=== PATIENT | male | born 1965 | race Caucasian/White ===

== ENCOUNTER 2024-02-16 11:39 | Observation (INO) ==
--- NOTE | 2024-02-16 12:04 | Emergency Department Note ---
Impression & Plan Chest pain ADMIT ED Provider Note HPI: History obtained from patient. The patient is a 58-year-old gentleman who presents to the emergency department after a failed stress test in the outpatient setting this morning through [facility]. I did receive a phone call about the patient prior to his arrival from Dr. Dorado of cardiology. He stated that the patient had a stress test today and developed some symptoms during the test and he was concerned about the potential for ischemia. Patient came by private vehicle and remained chest pain-free following his stress test at rest. On my assessment of the patient here in the ED he is hemodynamically stable, he denies any active pain. Patient is saturating well on room air on arrival. ROS: - Per HPI Differential Diagnosis: Acute coronary syndrome/myocardial ischemia, pulmonary embolism, aortic dissection, pneumothorax, esophagitis, amongst other potential pathologies. *Outpatient medications and allergy history reviewed. PE: General: Alert HEENT: Normocephalic, trachea midline Eyes: Extraocular eye movement is intact, no scleral erythema Pulmonary: Clear to auscultation bilaterally, no wheezing Cardio: Regular rate and rhythm GI: Abdomen is soft to palpation : No suprapubic tenderness MSK: No evidence of trauma or malformation of the extremities, no edema Skin: No evidence of rash Neuro: Alert, no focal deficits Psychiatric: Cooperative INDEPENDENT INTERPRETATIONS: air sampling and monitoring: (As interpreted by myself): - An order was placed for continuous cardiac monitoring - Patient was noted to be in sinus rhythm with a rate of 57 EKG: (As interpreted by myself): Rate: 77 Rhythm: Normal sinus rhythm Intervals: Within normal limits ST changes: No ST elevation Time: 1154 Chest x-ray: (As interpreted by myself): No acute abnormality Interventions provided in ED: -IV fluid bolus Medical Decision Making: IV was established and lab work obtained, patient was placed on site monitor. CBC does not show any critical abnormalities, CMP does not show any critical findings, troponin is negative x 1. EKG per my interpretation does not show any acute ischemic changes. Chest x-ray does not show any evidence of acute disease. I discussed the patient's presentation with the on-call [facility] district court bailiff, Dr. Mahajan, who did evaluate the patient at the bedside. Case was then discussed with the on-call [facility] hospitalist service, Anitha Clement PA- C, and the patient was placed for admission in stable condition for further care. Consultants/Discussions held with other healthcare providers: -Cardiology, Dr. Mahajan -Hospitalist, Dr. Oswald Disposition discussion held by myself with: -Patient and at bedside Diagnosis: 1. Abnormal outpatient stress test, acute 2. Chest pain, acute, transient Disposition: ADMIT Larry Nieves DO Emergency Medicine Past Med/Surg History Social History Smoking Status: Never smoker Feels Safe at Home: Yes Allergies Allergies Allergy/AdvReac Type Severity Reaction Status Date / Time No Known Allergies Allergy Unverified 02/16/24 13:09 Home Meds Home Medications Medication Instructions Recorded Confirmed cholecalciferol (vitamin D3) 25 25 mcg PO DAILY 02/16/24 02/16/24 mcg (1,000 unit) capsule (Vitamin D3) multivitamin 1 tab PO DAILY 02/16/24 02/16/24 Results & Data (ED) Vital Signs Vital Signs - 24 hr 02/16/24 11:40 02/16/24 11:42 02/16/24 11:44 Temperature 36.7 C Temperature Source Skin Pulse Rate 72 85 Pulse Rate from SpO2 Sensor Pulse Rhythm Regular Respiratory Rate 18 18 Blood Pressure 161/93 H Blood Pressure Mean 115 Pulse Oximetry 96 96 98 Oxygen Delivery Method Room Air Room Air Room Air Sepsis Recent Fever Within 48 Hours No Sepsis New/Unexplained Change in Mental Status No Sepsis Action Taken by Nursing No Action Required 02/16/24 12:12 02/16/24 12:22 02/16/24 12:30 Temperature Temperature Source Pulse Rate 78 72 72 Pulse Rate from SpO2 Sensor 77 73 Pulse Rhythm Respiratory Rate 23 17 Blood Pressure Blood Pressure Mean Pulse Oximetry 97 98 Oxygen Delivery Method Sepsis Recent Fever Within 48 Hours Sepsis New/Unexplained Change in Mental Status Sepsis Action Taken by Nursing 02/16/24 12:30 02/16/24 13:00 02/16/24 13:00 Temperature Temperature Source Pulse Rate 73 Pulse Rate from SpO2 Sensor Pulse Rhythm Respiratory Rate 15 Blood Pressure 148/81 H 124/81 Blood Pressure Mean 104 93 Pulse Oximetry Oxygen Delivery Method Sepsis Recent Fever Within 48 Hours Sepsis New/Unexplained Change in Mental Status Sepsis Action Taken by Nursing 02/16/24 13:30 02/16/24 14:00 Temperature Temperature Source Pulse Rate 76 60 Pulse Rate from SpO2 Sensor 76 61 Pulse Rhythm Respiratory Rate 14 15 Blood Pressure 143/95 H 114/74 Blood Pressure Mean 107 88 Pulse Oximetry 99 98 Oxygen Delivery Method Sepsis Recent Fever Within 48 Hours Sepsis New/Unexplained Change in Mental Status Sepsis Action Taken by Nursing Laboratory Data 02/16/24 Unknown 02/16/24 Unknown Lab Results 02/16/24 Range/Units Unknown WBC 6.25 (4.8-10.8) K/ul RBC 5.12 (4.70-6.10) M/uL Hgb 15.2 (14.0-18.0) g/dl Hct 44.0 (42.0-52.0) % MCV 85.9 (80.0-100.0) fL MCH 29.7 (25.0-34.0) pg MCHC 34.5 (32.0-36.0) g/dL RDW Std Deviation 39.8 (36.4-46.3) fL RDW Coeff of Damian 12.7 (11.5-14.5) % Plt Count 166 (130-400) K/uL MPV 10.8 (9.4-12.4) fL Immature Gran % (Auto) 0.2 % Neut % (Auto) 78.2 % Lymph % (Auto) 16.2 % [place] % (Auto) 4.6 % Eos % (Auto) 0.5 % Baso % (Auto) 0.3 % Neut # (Auto) 4.89 (1.40-6.50) K/uL Lymph # (Auto) 1.01 L (1.20-3.40) K/uL [place] # (Auto) 0.29 (0.11-0.59) K/uL Eos # (Auto) 0.03 (0.00-0.50) K/uL Baso # (Auto) 0.02 (0.00-0.20) K/uL Immature Gran # (Auto) 0.01 (0.01-0.20) K/uL PT 11.1 (9.0-12.0) Seconds INR 1.0 (0.9-1.1) Sodium 139 (136-145) mmol/L Potassium 4.4 (3.5-5.1) mmol/L Chloride 107 (98-107) mmol/L Carbon Dioxide 25 (21-32) mmol/L Anion Gap 7 (3-11) BUN 20 (6-23) mg/dl Creatinine 0.97 (0.6-1.4) mg/dl Est Cr Clr Drug Dosing 101.6 ml/min Est GFR ( Amer) 100.7 ml/min Est GFR (Non-Af Amer) 86.9 ml/min BUN/Creatinine Ratio 20.6 H (10-20) Glucose 114 H (70-99(Fasting)) mg/dl Calcium 9.7 (8.6-10.3) mg/dl Total Bilirubin 0.5 (0.2-1.0) mg/dl AST 18 (13-39) U/L ALT 13 (7-52) U/L Alkaline Phosphatase 80 (34-104) U/L Troponin I High Sens 4.8 (0-20) pg/ml Total Protein 7.6 (6.0-8.3) gm/dl Albumin 4.6 (3.4-5.0) gm/dl Globulin 3.0 (2.5-4.0) gm/dl Albumin/Globulin Ratio 1.5 (0.9-2) Lipase 23 (11-82) U/L Administered Medications Discontinued Medications Aspirin (Aspirin 81 Mg Chew) 324 mg PO NOW STA Stop: 02/16/24 14:34 Last Admin: 02/16/24 14:49 Dose: 324 mg Documented By: SUSAN Imaging Data Radiologist's Impression: Chest X-Ray 02/16/24 11:42 SINGLE VIEW CHEST CLINICAL HISTORY: Atypical chest pain. FINDINGS: An AP, portable, upright chest radiograph is obtained. No prior studies are available for comparison at the time of dictation. The cardiomediastinal silhouette is top normal for projection. The lungs and pleural spaces are clear. No pneumothorax is seen. The bony thorax is grossly intact. IMPRESSION: No acute cardiopulmonary abnormality is identified. ACT 112: Negative or not required by law. Electronically signed by: Jose Armendariz M.D. 02/16/2024 12:22 PM Discharge Plan Visit Data Chief Complaint: Cardiac Assessment Stated Complaint: heart catheter ED Provider: Larry Nieves Discharge Problem: Chest pain Forms Stand Alone Forms: [facility] [employer] Prescriptions Prescriptions: No Action multivitamin Tablet 1 tab PO DAILY cholecalciferol (vitamin D3) [Vitamin D3] 25 mcg (1,000 unit) Capsule 25 mcg PO DAILY Referrals Referrals: PCP,NO [Physician] - Discharge Problem: Chest pain Qualifiers: Chest pain type: unspecified Qualified Code(s): R07.9 - Chest pain, unspecified
--- NOTE | 2024-02-16 12:24 | XRay Report ---
SINGLE VIEW CHEST CLINICAL HISTORY: Atypical chest pain. FINDINGS: An AP, portable, upright chest radiograph is obtained. No prior studies are available for c omparison at the time of dictation. The cardiomediastinal silhouette is top normal for projection. Th e lungs and pleural spaces are clear. No pneumothorax is seen. The bony thorax is grossly intact. IMPRESSION: No acute cardiopulmonary abnormality is identified. ACT 112: Negative or not required by law. Electronically signed by: Jose Armendariz M.D. 02/16/2024 12:22 PM
[2024-02-16 12:57] LABS: Albumin Globulin Ratio 1.5 (0.9-2); Albumin Level 4.6 gm/dl (3.4-5.0); BUN Creatinine Ratio 20.6 (10-20); Bilirubin,Total 0.5 mg/dl (0.2-1.0); Calcium 9.7 mg/dl (8.6-10.3); Creatinine Clr Calc Pharmacy 101.6 ml/min; Est GFR (African American) 100.7 ml/min; Est GFR (Non-African American) 86.9 ml/min; Potassium 4.4 mmol/L (3.5-5.1); Total Protein 7.6 gm/dl (6.0-8.3)
[2024-02-16 12:59] LABS: Basophils # (auto) 0.02 K/uL (0.00-0.20); Basophils % (auto) 0.3 %; Eosinophils # (auto) 0.03 K/uL (0.00-0.50); Eosinophils % (auto) 0.5 %; Hemoglobin 15.2 g/dl (14.0-18.0); Immature Granulocytes # (auto) 0.01 K/uL (0.01-0.20); Immature Granulocytes % (auto) 0.2 %; Lymphocytes # (auto) 1.01 K/uL (1.20-3.40); Lymphocytes % (auto) 16.2 %; Mean Corpuscular Hemoglobin 29.7 pg (25.0-34.0); Mean Corpuscular Hgb Conc 34.5 g/dL (32.0-36.0); Mean Corpuscular Volume 85.9 fL (80.0-100.0); Mean Platelet Volume 10.8 fL (9.4-12.4); Monocytes # (auto) 0.29 K/uL (0.11-0.59); Monocytes % (auto) 4.6 %; Neutrophils # (auto) 4.89 K/uL (1.40-6.50); Neutrophils % (auto) 78.2 %; Platelet Count 166 K/uL (130-400); RDW Coefficient of Variation 12.7 % (11.5-14.5); RDW Standard Deviation 39.8 fL (36.4-46.3); Red Blood Count 5.12 M/uL (4.70-6.10); White Blood Count 6.25 K/ul (4.8-10.8)
[2024-02-16 13:03] LABS: Troponin I High Sensitivity 4.8 pg/ml (0-20)
--- NOTE | 2024-02-16 13:14 | Cardiology Consultation ---
Date of Consultation February 16, 2024 Assessment & Plan (1) Chest pain: (2) Abnormal stress echocardiogram: (3) Hyperlipidemia: Plan Impression: 1. Exertional angina 2. Abnormal stress echocardiogram 3. HLD Plan: -EKG without acute changes -Troponin normal -Patient remains chest pain free -Exercise stress echocardiogram markedly abnormal with significant ST depression and hypokinesis concerning for pLAD stenosis. -Patient to receive 324mg ASA -Plan for cardiac catheterization today. Patient to remain NPO for procedure. Case discussed with Dr. Mahajan. Further recommendations pending assessment. I spent a total of 40 minutes on the date of service in preparation, delivery, and documentation of the care provided to the patient excluding any time spent in the performance of separately billed services. Katlyn Ackerman PA-C Department of Cardiology, [facility] This chart was completed in part utilizing Speech Voice Recognition Software. Grammatical errors, random word insertions, pronoun errors, and incomplete sentences are an occasional consequence of this system due to software limitations, ambient noise, and hardware issues. Any formal questions or concerns about the content, text, or information contained within the body of this dictation should be directly addressed to the provider for clarification. Supervising Physician Co-Signing Physician Notes Patient was seen and personally examined, chart, medications, telemetry reviewed. Full assessment and plan as outlined by advanced provider above. Care and management discussed and personally endorsed 58-year-old male with cardiovascular risk factors of hyperlipidemia presented with symptoms concerning for exertional angina over the 1 month period. Patient referred for stress echocardiography as above with significant stress- induced abnormalities EKG and echocardiographic consistent with proximal left anterior descending disease Discussed management in detail with patient would recommend proceeding to diagnostic cardiac catheterization with procedure and risks explained in detail to the patient. Informed consent obtained. All questions answered History of Present Illness Reason for Consultation: Abnormal stress test Requesting Physician: Dacia kelley History of Present Illness Gurjit Barron is a pleasant 58 year old male with PMHx HLD that presented to [facility] ED per recommendation of cardiology for abnormal stress test today. Patient initially saw his PCP for routine visit on 02/15/2024. He had a complaint of exertional chest discomfort associated with lightheadedness and nausea x1 month. Chest discomfort located substernally and described as mild pressure. Nonradiating. Symptoms improve with rest. No vomiting/diaphoresis. He first noticed symptoms while weight training 5 weeks ago. EKG was completed and stress test was scheduled for today. He is very active in his daily life, completing weight training and core exercises 6x per week. He does not take any daily m edications. Patient is currently chest pain free and has no complaints. Denies palpitations, syncope. Patient denies history of rheumatic fever as a child, history of diabetes, CAD, CHF. Social Hx: never smoker, 1-2 alcohol beverages every couple of weeks, denies drug use Family Hx: Father - CAD s/p angioplasty PMHx: HLD Refer to Dr. Dorado's interpretation of exercise stress echocardiogram below: "Patient developed shortness of breath proximally 3 minutes into exercise with associated ST depression in the inferior and lateral leads. He developed chest pressure at approximately 6 minutes which resolved promptly during recovery. He did however develop more than 3 mm of horizontal to downsloping ST depression in the inferior lateral leads. " Per report stress imaging demonstrating hypokinesis of mid and anterior apical wall, apex, apical inferior and lateral man, mid and apical septum. Suggestive of possible pLAD stenosis. EF 60-64% Primary outpatient fruit or nut farmer: Dr. Dorado Allergies Allergy/AdvReac Type Severity Reaction Status Date / Time No Known Allergies Allergy Unverified 02/16/24 13:09 Home Medications Medication Instructions Recorded Confirmed Type cholecalciferol (vitamin D3) 25 25 mcg PO DAILY 02/16/24 02/16/24 History mcg (1,000 unit) capsule (Vitamin D3) multivitamin 1 tab PO DAILY 02/16/24 02/16/24 History Patient History Social History Smoking Status: Never smoker Hx Substance Use: No Feels Safe at Home: Yes Review of Systems Review of Systems: All systems reviewed & are unremarkable except as noted in HPI & below Physical Exam Constitutional: WD/WN, vitals as above Eyes: PERRL, conjunctivae normal, anicteric sclerae Neck: trachea midline, no thyromegaly Respiratory: normal respiratory effort, lungs clear to auscultation Cardiovascular: RRR, no murmur, no edema Heart Sounds: normal S1 and normal S2 Vessels: normal peripheral pulses; no carotid bruit Extremities: no edema Chest (Breasts): normal inspection/palpation of breasts Gastrointestinal (Abdomen): normal bowel sounds, soft, nontender, no hepatosplenomegaly Musculoskeletal: no cyanosis or clubbing, extremities motor strength 5/5 Skin: no rashes, warm and dry Neurologic: PERRL, EOMI, accommodation nl, no face palsy, no dysarthria Psychiatric: A+Ox3, euthymic affect Results & Data Vital Signs (Past 12 Hours) Vital Signs Temp Pulse Resp BP Pulse Ox O2 Del Method 02/16/24 12:22 72 02/16/24 11:44 36.7 C 85 18 161/93 H 98 Room Air Laboratory Results Cardiac Enzymes 02/16/24 Range/Units Unknown AST 18 (13-39) U/L Troponin I High Sens 4.8 (0-20) pg/ml Coagulation 02/16/24 Range/Units Unknown PT 11.1 (9.0-12.0) Seconds CBC 02/16/24 Range/Units Unknown WBC 6.25 (4.8-10.8) K/ul RBC 5.12 (4.70-6.10) M/uL Hgb 15.2 (14.0-18.0) g/dl Hct 44.0 (42.0-52.0) % Plt Count 166 (130-400) K/uL Neut # (Auto) 4.89 (1.40-6.50) K/uL Lymph # (Auto) 1.01 L (1.20-3.40) K/uL [place] # (Auto) 0.29 (0.11-0.59) K/uL Eos # (Auto) 0.03 (0.00-0.50) K/uL Baso # (Auto) 0.02 (0.00-0.20) K/uL Comprehensive Metabolic Panel 02/16/24 Range/Units Unknown Sodium 139 (136-145) mmol/L Potassium 4.4 (3.5-5.1) mmol/L Chloride 107 (98-107) mmol/L Carbon Dioxide 25 (21-32) mmol/L BUN 20 (6-23) mg/dl Creatinine 0.97 (0.6-1.4) mg/dl Glucose 114 H (70-99(Fasting)) mg/dl Calcium 9.7 (8.6-10.3) mg/dl AST 18 (13-39) U/L ALT 13 (7-52) U/L Alkaline Phosphatase 80 (34-104) U/L Total Protein 7.6 (6.0-8.3) gm/dl Albumin 4.6 (3.4-5.0) gm/dl Intake and Output 02/15/24 02/16/24 02/16/24 22:59 06:59 14:59 Other: Weight 95.1 kg Patient Weight 02/17/24 06:59 Weight 95.1 kg
[2024-02-16 13:16] LABS: Prothrombin Time 11.1 Seconds (9.0-12.0)
--- NOTE | 2024-02-16 14:00 | History & Physical Report ---
Date of Service February 16, 2024 Assessment & Plan (1) Abnormal stress echocardiogram: Plan: Patient is 58 year old [facility] dyslipidemia, FH CAD presented to ER with c/o abnormal stress test today and referred to ER by cardiology In ER vitals stable. Troponin negative. EKG sinus rhythm without acute ST elevation No current CP or SOB Give 324mg aspirin now Cardiology consult, Dr Mahajan plans to take patient to director geophysical laboratory this afternoon Start aspirin Follow up after cardiac cath and will add statin and likely beta jake, and possible dual antiplatelet therapy pending cardiac cath findings and procedure CBC, BMP in am Outpatient 02/15/2024 lipid panel: Total cholesterol: 272, LDL: 192, HDL: 49, triglycerides: 153. A1c: 5.4 on 02/15/2020 (2) Hyperlipidemia: Plan: Plan to add statin DVT Prophylaxis SCDs Full Code as per discussion with pt Follows with Dr Ramiro Lemons for routine care Pt was seen and care coordinated with Dr Oswald. See addendum I spent a total of 75 minutes reviewing notes, outpatient records, labs, medication, coordinating, documenting and providing care for this patient excluding time spent in the performance of separately billed services. History of Present Illness Chief Complaint: abnormal stress test Primary Care Provider: Ramiro Lemons DO Patient is 58 year old [facility] dyslipidemia presented to ER with c/o abnormal stress test today. Patient was seen PCP office yesterday for routine follow up and had mentioned chest pressure sensation with strenuous exercise that resolves in approximately 30 seconds with rest. He was scheduled for outpatient exercise stress test which he had today and had noted SOB and ST depression in inferior an lateral leads per report and was sent to ER for further evaluation and planned cardiac catheterization. Nothing to eat so far today. Had 0.5 cup black coffee today. Currently patient denies any CP, SOB, dizziness, palpitations. He reports he is a bit anxious with the events of the day. Denies fever/chills, diaphoresis, N/V/D/C, BATEMAN, dizziness, syncope, vision changes, neck pain, orthopnea, palpitations, cough, sore throat, rhinorrhea, abdominal pain, paresthesias, weakness, extremity weakness, extremity edema, rashes, urinary symptoms. Allergies Allergy/AdvReac Type Severity Reaction Status Date / Time No Known Allergies Allergy Unverified 02/16/24 13:09 Home Medications Medication Instructions Recorded Confirmed Type aspirin 81 mg tablet,delayed 81 mg PO QAM #30 tabs 02/16/24 Rx release cholecalciferol (vitamin D3) 25 25 mcg PO DAILY 02/16/24 02/16/24 History mcg (1,000 unit) capsule (Vitamin D3) metoprolol succinate 25 mg 12.5 mg (1/2 x 25 mg) PO BID #30 02/16/24 Rx tablet,extended release 24 hr tabs multivitamin 1 tab PO DAILY 02/16/24 02/16/24 History rosuvastatin 20 mg tablet 20 mg PO DAILY #30 tabs 02/16/24 Rx Past Med/Surg History Medical History Hyperlipidemia Family History Father Coronary heart disease Father stent age 50's Diabetes Brother Dyslipidemia Sister Dyslipidemia Social History Smoking Status: Never smoker Hx Alcohol Use: Yes (1-2 beers every 2 weeks) Hx Substance Use: No Feels Safe at Home: Yes Review of Systems Review of Systems: All systems reviewed & are unremarkable except as noted in HPI & below Physical Exam Physical Exam: General: no acute distress, WDWN Head: normocephalic, atraumatic Eyes: conjunctiva non-injected, anicteric ENT: normal inspection external ears, nose, mucous membranes moist Neck: supple, trachea midline Lungs: clear, no respiratory distress, no wheezing/rhonchi/rales CV: RRR, no murmur, no pretibial edema Abd: normal BS, soft, non-tender Ext: no cyanosis, no calf tenderness Neuro: A&O x 3, no focal deficits noted, slightly anxious affect Skin: warm, dry Results & Data Results & Data Vital Signs (Past 12 Hours) Vital Signs Temp Pulse Resp BP Pulse Ox O2 Del Method 02/16/24 13:00 73 15 02/16/24 13:00 124/81 02/16/24 12:30 148/81 H 02/16/24 12:30 72 17 98 02/16/24 12:22 72 02/16/24 12:12 78 23 97 02/16/24 11:44 36.7 C 85 18 161/93 H 98 Room Air 02/16/24 11:42 72 18 96 Room Air 02/16/24 11:40 96 Room Air Laboratory Results Short CBC 02/16/24 Range/Units Unknown WBC 6.25 (4.8-10.8) K/ul Hgb 15.2 (14.0-18.0) g/dl Hct 44.0 (42.0-52.0) % Plt Count 166 (130-400) K/uL BMP 02/16/24 Unknown Sodium 139 Potassium 4.4 Chloride 107 Carbon Dioxide 25 BUN 20 Creatinine 0.97 Glucose 114 H Calcium 9.7 Liver Function 02/16/24 Range/Units Unknown Total Bilirubin 0.5 (0.2-1.0) mg/dl AST 18 (13-39) U/L ALT 13 (7-52) U/L Alkaline Phosphatase 80 (34-104) U/L Albumin 4.6 (3.4-5.0) gm/dl Diagnostic Findings Chest X-Ray 02/16/24 11:42 SINGLE VIEW CHEST CLINICAL HISTORY: Atypical chest pain. FINDINGS: An AP, portable, upright chest radiograph is obtained. No prior studies are available for comparison at the time of dictation. The cardiomediastinal silhouette is top normal for projection. The lungs and pleural spaces are clear. No pneumothorax is seen. The bony thorax is grossly intact. IMPRESSION: No acute cardiopulmonary abnormality is identified. ACT 112: Negative or not required by law. Electronically signed by: Jose Armendariz M.D. 02/16/2024 12:22 PM ECG Additional Comments: sinus rhythm, rate 77 Supervising Physician Co-Signing Physician Notes I have seen and discussed the case with the collaborating advanced practitioner. I agree with the above H&P. I have reviewed and confirmed the patients medical history, the findings on physical examination, and the patients diagnosis and treatment plan with [facility] PRICE and agree with the information documented. In short, Mr Barron is a 58 year old gentleman with no notable medical history admitted for abnormal stress test. LHC reveal severe CAD with chronic occlusion. Given collaterals, patient to be medically managed with ASA, statin, BB. There is reluctance for statin therapy with spouse. Encouraged and recommended the aforementioned regimen. GENERAL APPEARANCE: AxOx4, generally well-appearing male, no acute distress. HEENT: NC, AT. MMM. EOMI, clear conjunctiva, oropharynx clear. NECK: Supple without lymphadenopathy. No stiffness or restricted ROM. HEART: Normal rate and regular rhythm, normal S1/S1, no m/r/g LUNGS: CTAB, moving air well. No crackles or wheezes are heard. ABDOMEN: Soft, nontender, nondistended with good bowel sounds heard. EXTREMITIES: Without cyanosis, clubbing or edema. NEUROLOGICAL: Grossly nonfocal. Alert and oriented, moving all 4 extremities. CN not formally tested but appear grossly intact. Observed to ambulate with normal gait. Skin: Warm and dry without any rash. #Severe CAD with chronic occlusion #Abnormal stress test -Encouraged ASA, statin, BB therapy follow up with Cards. Plan as above I spent a total of 45 minutes coordinating, documenting, and providing care for this patient excluding time spent in the performance of separately billed ser vices. All of the aforementioned completed outside of collaborating with the assigned advanced practitioner for a full treatment plan. I have reviewed the advanced practitioner's documentation, and I agree with, and take responsibility for the plan of care
[2024-02-16] MEDS: ASPIRIN 81 MG CHEW PO STA (14:49)
--- NOTE | 2024-02-16 15:17 | Pre Anesthesia Assessment ---
Date of Service February 16, 2024 Pre Sedation Assessment Vital Signs Temp Pulse Resp BP Pulse Ox O2 Del Method 02/16/24 15:00 132/84 02/16/24 14:59 69 14 02/16/24 14:30 119/73 02/16/24 14:30 65 16 100 02/16/24 14:00 60 15 114/74 98 02/16/24 13:30 76 14 143/95 H 99 02/16/24 13:00 73 15 02/16/24 13:00 124/81 02/16/24 12:30 148/81 H 02/16/24 12:30 72 17 98 02/16/24 12:22 72 02/16/24 12:12 78 23 97 02/16/24 11:44 36.7 C 85 18 161/93 H 98 Room Air 02/16/24 11:42 72 18 96 Room Air 02/16/24 11:40 96 Room Air Cardiovascular + regular rate and + regular rhythm + S1 normal and + S2 normal; no murmur no JVD no edema Respiratory normal respiratory effort, lungs clear to auscultation Pre-Sedation Airway Assessment Smoking Status: Never smoker Mallampati Class: II ASA: ASA2 NPO Status Date of Last Intake of Fluids: 02/16/24 Last Oral Intake of Fluids Comment: Sips only this morning Date of Last Intake of Solid Food: 02/15/24 Procedure Planning Contraindications for Sedation: none Current Medications Reviewed: Yes Notes The planned sedation has been discussed with the patient. Informed Consent was obtained. I have identified the patient, determined the appropriateness of sedation and have assessed the patient immediately prior to the procedure. All medicine(s) and interventions are by my order.
[2024-02-16] MEDS: niCARdipine HCL INJ 2.5 MG/ML 10 ML AMP ONE (16:10)
[2024-02-16] MEDS: NITROGLYCERIN/D5W 100MCG/ML 20ML SYR ONE (16:10)
[2024-02-16] MEDS: HEPARIN (PORCINE) 1000 UNIT/ML 10 ML (CATH LAB USE ONLY) ONE (16:13)
[2024-02-16] MEDS: MIDAZOLAM HCL 1 MG/ML 2ML VIAL ONE (16:13)
[2024-02-16] MEDS: OPTIRAY 350 ONE (16:14)
[2024-02-16] MEDS: fentaNYL citrate PF 100 MCG/2 ML VIAL ONE (16:14)
--- NOTE | 2024-02-16 16:28 | Cardiac Catheterization ---
Cardiac Cath Procedure Brief Procedure Date February 16, 2024 Pre-Procedure Diagnosis Pre-Procedure Diagnosis: Angina and Positive Stress Test AUC Score AUC Score: 7 Post-Procedure Diagnosis Post-Procedure Diagnosis: Severe CAD (Single-vessel with chronic total occlusion left anterior descending/diagonal) and Normal LV Systolic Function Procedure(s) Performed Procedure(s) Performed: Coronary Angiography, Left Heart Cath and LV Angiography Offset Press Operator Apprentice Riky Mahajan MD Biostatistics Professor(s) Slime Stallworth Estimated Blood Loss Estimated Blood Loss: <15cc Medication(s) Medication(s): Fentanyl (12.5 mcg IV), Heparin (5000 units IV), Lidocaine 1% (Local infiltration access site), Nicardipine (250 mcg intra-arterial after arterial sheath insertion) and Versed (1 mg IV) Preliminary Findings Impression: Severe single-vessel coronary disease with chronic total occlusion of the proximal left anterior descending with left to left and right to left collaterals fill Normal to hyperdynamic left-ventricular systolic function Procedure: Left heart catheterization, coronary, LV angiography via right radial access, uncomplicated Catheters: 6 Wolof long glide sheath, 5 Wolof [place], 5 Wolof straight pigtail Coronary angiography: Codominant system anatomy Left main: Normal length and caliber free of disease Left anterior descending: Type III in distribution with severe disease in proximal portion with chronic total occlusion after 2 small diagonal branches. The vessel seen filling via left to left and right to left collateral fill Left circumflex: Large caliber codominant anatomy with the right coronary supplying only a small portion of the posterior descending artery distribution. The vessel gives rise to a tiny high marginal 2 large obtuse marginal branches, 2 large left posterolateral branches and a posterior descending artery. There are mild luminal irregularities in the left circumflex distribution Right coronary artery: Small and codominant. It gives rise to a right ventricular branch and a small portion of the posterior sending artery distribution. It does supply collateral fill to the mid and distal left anterior descending through septal perforators LV angiography: Hyperdynamic LV function, EF greater than 70% Recommendations Recommendations: Medical Therapy and/or Counseling Specimens Specimens: None Fluids (cc crystalloids) Fluids (cc crystalloids): 67 Anesthesia Start time: 1552 stop time: 1615 Procedural Complication(s) None Disposition Machinery Mover Holding/Recovery Supervising Physician Co-Signing Physician Notes Patient was seen and personally examined, chart, medications, telemetry reviewed. Full assessment and plan as outlined by advanced provider above. Care and management discussed and personally endorsed 58-year-old male with cardiovascular risk factors of hyperlipidemia presented with symptoms concerning for exertional angina over the 1 month period. Patient referred for stress echocardiography as above with significant stress-in duced abnormalities EKG and echocardiographic consistent with proximal left anterior descending disease Discussed management in detail with patient would recommend proceeding to diagnostic cardiac catheterization with procedure and risks explained in detail to the patient. Informed consent obtained. All questions answered
[2024-02-16] MEDS ORDERED: ONDANSETRON INJ 2 MG/ML 2 ML VIAL IV PRN (17:34)
[2024-02-16] MEDS ORDERED: ACETAMINOPHEN 325 MG TAB PO PRN (17:34)
[2024-02-16] MEDS ORDERED: POLYETHYLENE (MIRALAX) 17 GM PACK PO PRN (17:34)
--- NOTE | 2024-02-16 17:40 | Cardiac Catheterization ---
Cardiac Cath Procedure Full Procedure Date February 16, 2024 Pre-Procedure Diagnosis Pre-Procedure Diagnosis: Angina and Positive Stress Test AUC Score AUC Score: 8 Post-Procedure Diagnosis Post-Procedure Diagnosis: Severe CAD (Single-vessel with chronic total occlusion left anterior descending/diagonal) and Normal LV Systolic Function Procedure(s) Performed Procedure(s) Performed: Coronary Angiography, Left Heart Cath and LV Angiography Emulsification Operator Riky Mahajan MD Electric Motor Tester(s) Slime Stallworth Estimated Blood Loss Estimated Blood Loss: <15cc Medication(s) Medication(s): Fentanyl (12.5 mcg IV), Heparin (5000 units IV), Lidocaine 1% (Local infiltration access site), Nicardipine (250 mcg intra-arterial after arterial sheath insertion) and Versed (1 mg IV) Summary of Findings Impression: Severe single-vessel coronary disease with chronic total occlusion of the proximal left anterior descending with left to left and right to left collaterals fill Normal to hyperdynamic left-ventricular systolic function Procedure: Left heart catheterization, coronary, LV angiography via right radial access, uncomplicated Catheters: 6 Macanese long glide sheath, 5 Macanese [place], 5 Macanese straight pigtail Coronary angiography: Codominant system anatomy Left main: Very short, normal caliber free of disease Left anterior descending: Type III in distribution with severe disease in proximal portion with chronic total occlusion after 2 small diagonal branches. The vessel seen filling via left to left and right to left collateral fill Left circumflex: Large caliber codominant anatomy with the right coronary supplying only a small portion of the posterior descending artery distribution. The vessel gives rise to a tiny high marginal 2 large obtuse marginal branches, 2 large left posterolateral branches and a posterior descending artery. There are mild luminal irregularities in the left circumflex distribution Right coronary artery: Small and codominant. It gives rise to a right ventricular branch and a small portion of the posterior sending artery distribution. It does supply collateral fill to the mid and distal left anterior descending through septal perforators LV angiography: Hyperdynamic LV function, EF greater than 70% Hemodynamics Rest Ao:: 126/83/1 Final Ao: 106/76/9 LV: 123/0/15 Recommendations Recommendations: Medical Therapy and/or Counseling Specimens Specimens: None Radiation Exposure (mGy) 866 Contrast (mls) 83 Fluids (cc crystalloids) Fluids (cc crystalloids): 67 Anesthesia Start time: 1552 stop time: 1615 Procedural Complication(s) None Disposition Interface Analyst Holding/Recovery I attest to the content of the Intraoperative Record and any orders documented therein. Any exceptions are noted below. ACC Data: Interface Analyst Cardiac Status Clinical evaluation leading to the procedure 58-year-old active male referred for stress testing after presenting with 1 or 2 months greater history of exertional anginal symptoms Stress testing with significant LAD distribution ischemia by EKG and echocardiographic criteria CAD Presenation: Stable angina Anginal Classification: CCS III Heart Failure: No Cardiogenic Shock within 24 Hours: No Cardiac Arrest within 24 Hours: No Imaging Studies Past 6 Months: Yes Stress Studies Past 6 Months: Yes Standard Exercise Test: No Stress Echocardiogram: Yes - Positive Stress Testing w/SPECT MPI: No Cardiac CTA: No Coronary Anatomy Dominant: Co-Dominant Left Main (% Stenosis): Normal (Short vessel) LAD (% Stenosis): Proximal (100% chronic total occlusion) Circumflex (% Stenosis): Proximal (Mild irregularities) OM1 (% Stenosis): Normal OM2 (% Stenosis): Normal L PL1 (% Stenosis): Normal L PL2 (% Stenosis): Normal L PDA (% Stenosis): Normal RCA (% Stenosis): Mid (Mild irregularities) R PDA (% Stenosis): Normal (Small vessel) Left Ventricular Angiography EF (%): >70 Mitral Regurgitation: None Diagnostic Physicians Name: Riky Mahajan MD Closure Device Percutaneous Entry Location: Radial Closure Device: Radial Band Recommendations: Medical Therapy and/or Counseling
[2024-02-16] MEDS: SODIUM CHLORIDE 0.9% 1,000 ML IV SCH (18:01)
--- NOTE | 2024-02-16 18:15 | Discharge Summary ---
Date of Service February 16, 2024 Admission HPI Per Admitting Provider Patient is 58 year old wit PMH dyslipidemia presented to ER with c/o abnormal stress test today. Patient was seen PCP office yesterday for routine follow up and had mentioned chest pressure sensation with strenuous exercise that resolves in approximately 30 seconds with rest. He was scheduled for outpatient exercise stress test which he had today and had noted SOB and ST depression in inferior an lateral leads per report and was sent to ER for further evaluation and planned cardiac catheterization. Nothing to eat so far today. Had 0.5 cup black coffee today. Currently patient denies any CP, SOB, dizziness, palpitations. He reports he is a bit anxious with the events of the day. Denies fever/chills, diaphoresis, N/V/D/C, BATEMAN, dizziness, syncope, vision changes, neck pain, orthopnea, palpitations, cough, sore throat, rhinorrhea, abdominal pain, paresthesias, weakness, extremity weakness, extremity edema, rashes, urinary symptoms. Admission Exam Per Admitting Provider General: no acute distress, WDWN Head: normocephalic, atraumatic Eyes: conjunctiva non-injected, anicteric ENT: normal inspection external ears, nose, mucous membranes moist Neck: supple, trachea midline Lungs: clear, no respiratory distress, no wheezing/rhonchi/rales CV: RRR, no murmur, no pretibial edema Abd: normal BS, soft, non-tender Ext: no cyanosis, no calf tenderness Neuro: A&O x 3, no focal deficits noted, slightly anxious affect Skin: warm, dry Principal Diagnosis CAD Exertional angina Abnormal stress test Discharge Exam General: no acute distress, WDWN Head: normocephalic, atraumatic Eyes: conjunctiva non-injected, anicteric ENT: normal inspection external ears, nose, mucous membranes moist Neck: supple, trachea midline Lungs: clear, no respiratory distress, no wheezing/rhonchi/rales CV: RRR, no murmur, no pretibial edema Abd: normal BS, soft, non-tender Ext: no cyanosis, no calf tenderness Neuro: A&O x 3, no focal deficits noted, normal affect Skin: warm, dry Discharge Data Allergies Allergy/AdvReac Type Severity Reaction Status Date / Time No Known Allergies Allergy Unverified 02/16/24 13:09 Consultations 02/16/24 13:04 Consult Cardiology Stat 02/16/24 13:22 ED Decision to Admit Stat 02/16/24 17:34 Consult Cardiology Routine Procedures Performed Operation Date: 02/16/24 14:00 Actual Procedures s Cineradiography w/Routine Exam - Riky Mahajan MD p Cath, Left with Cors and Vent - Riky Mahajan MD Ordered Studies 02/16/24 15:28 CL Cath Imgs for PACS use only Stat Hospital Course (1) CAD (coronary artery disease): (2) Exertional angina: (3) Abnormal stress echocardiogram: (4) Hyperlipidemia: Plan Patient admitted to hospital after referred to ER by cardiology today for abnormal exercise stress test today. Cardiology was consulted. Had cardiac catheterization that showed severe CAD, chronic total occlusion left anterior descending/diagonal. Observation and medical management was recommended including Toprol XL 12.5mg two times daily, aspirin 81mg daily, and rosuvastatin 20mg daily. Patient did not want to further stay in hospital and requested discharge home after further discussion with outside sales representative. It was highly recommended patient stay in hospital for further observation, however patient and request discharge now. It was recommended patient follow heart healthy diet and follow up with outside sales representative and PCP outpatient. Total Time Total Time Spent Total Time Spent (In Minutes): 35 Discharge Plan Discharge Items Patient Disposition: Home - Self-Care Reason For Visit: ABNORMAL STRESS TEST Discharge Diagnosis: Severe coronary artery disease, chronic total occlusion left anterior descending/diagonal Activity: Resume your previous activity Non-emergency contact: Vault Person Call non-emergency contact if: you have any medication questions Follow-up/Referrals: Riky Mahajan MD [Physician] - Ramiro Lemons DO [Primary Care Provider] - Diet: Heart Healthy Addtl Attending Provider Instructions: You were admitted for abnormal stress test and underwent left heart catheterization. It revealed severe coronary artery disease with chronic total occlusion left anterior descending/diagonal vessel. It is STRONGLY RECOMMENDED you take the following medications: -Metoprolol XL 12.5mg two times daily -Aspirin 81mg daily -Rosuvastatin 20mg daily Pending Studies at Discharge: No Stand-Alone Forms: My Sq[employer], Smoking Cessation Medications and DC Order Prescriptions: New aspirin 81 mg Tablet,Delayed Release (Dr/Ec) 81 mg PO QAM Qty: 30 0RF metoprolol succinate 25 mg Tablet Extended Release 24 Hr 12.5 mg PO BID Qty: 30 0RF rosuvastatin 20 mg tablet 20 mg PO DAILY Qty: 30 0RF Continued multivitamin Tablet 1 tab PO DAILY cholecalciferol (vitamin D3) [Vitamin D3] 25 mcg (1,000 unit) Capsule 25 mcg PO DAILY Discharge Orders: Discharge Order (Routine); Ordered 02/16/24 Ordered By: Yue Oswald Admission Data Admit Date/Time: 02/16/24 14:13 Attending Provider: Yue Oswald Admit Provider: Yue Oswald Primary Care Provider: Ramiro Lemons Other Providers: Riky Mahajan; Yue Oswald Other Interventions: Discharge Summary Assessment (RN) Last Done: 02/16/24 18:34 Supervising Physician Co-Signing Physician Notes I have seen and discussed the case with the collaborating advanced practitioner. I agree with the above H&P. I have reviewed and confirmed the patients medical history, the findings on physical examination, and the patients diagnosis and treatment plan with Vidal PRICE and agree with the information documented. In short, Mr Barron is a 58 year old gentleman with no notable medical history admitted for abnormal stress test. LHC reveal severe CAD with chronic occlusion. Given collaterals, patient to be medically managed with ASA, statin, BB. There is reluctance for statin therapy with spouse. Encouraged and recommended the aforementioned regimen. It was recommended patient stay for 24 hour post cath monitoring; however, patient declined further monitoring and discharged with confirmation from Cardiology on recommended plan. GENERAL APPEARANCE: AxOx4, generally well-appearing male, no acute distress. HEENT: NC, AT. MMM. EOMI, clear conjunctiva, oropharynx clear. NECK: Supple without lymphadenopathy. No stiffness or restricted ROM. HEART: Normal rate and regular rhythm, normal S1/S1, no m/r/g LUNGS: CTAB, moving air well. No crackles or wheezes are heard. ABDOMEN: Soft, nontender, nondistended with good bowel sounds heard. EXTREMITIES: Without cyanosis, clubbing or edema. NEUROLOGICAL: Grossly nonfocal. Alert and oriented, moving all 4 extremities. CN not formally tested but appear grossly intact. Observed to ambulate with normal gait. Skin: Warm and dry without any rash. #Severe CAD with chronic occlusion #Abnormal stress test -Encouraged ASA, statin, BB therapy follow up with Cards. Plan as above I spent a total of 45 minutes coordinating, documenting, and providing care for this patient excluding time spent in the performance of separately billed services. All of the aforementioned completed outside of collaborating with the assigned advanced practitioner for a full treatment plan. I have reviewed the advanced practitioner's documentation, and I agree with, and take responsibility for the plan of care Diagnosis (1) CAD (coronary artery disease): (2) Exertional angina: (3) Abnormal stress echocardiogram: (4) Hyperlipidemia:
[2024-02-16] MEDS: METOPROLOL SUCC 25MG EXT REL TAB PO SCH (18:48)
--- NOTE | 2024-02-16 19:34 | Electrocardiogram Report ---
Test Reason : Blood Pressure : / mmHG Vent. Rate : 077 BPM Atrial Rate : 077 BPM P-R Int : 152 ms QRS Dur : 084 ms QT Int : 400 ms P-R-T Axes : 064 055 039 degrees QTc Int : 452 ms Normal sinus rhythm Normal ECG No previous ECGs available Confirmed by Tom Cedillo ([id number]) on 02/16/2024 7:34:23 PM Referred By: Confirmed By:Erickson Cedillo
--- OUTSIDE RECORDS SUMMARY | 2024-02-16 22:00 | External Medical Summary ---
Author Name Unknown Address Unknown Organization [id number]:[facility] [place] [facility] [address] [facility] [address] Laboratory Report Ordering Provider Test Date Status LATISHA FINN 02/15/2024 12:15:35 Final Observation Date Value Abnormality Reference (Units ) Status Triglyceride 02/15/2024 12:15:35 153 <=174 ( mg/dL) Final Triglyceride Reference Range s (mg/dL):
<150 Acceptable
150-174 Borderline high
175-499 High
>=500 Very high Cholesterol 02/15/2024 12:15:35 272 Above high normal <200 (mg/dL) Final Total Cholesterol Reference Ranges (mg/dL):
<200 Desirable
200-239 Borderline high
>=240 High HDL 02/15/2024 12:15:35 49 >39 (mg/dL ) Final HDL Cholesterol Reference Ra nges (mg/dL):
>=60 High (Desirable)
<50 Low (Undesirable) For Females
<40 Low (Undesirable) For Males NON-HDL CHOLESTEROL 02/15/2024 12:15:35 223 Above high normal <=159 (mg/dL) Final Non-HDL Cholesterol Referenc e Range (mg/dL):
<100 Target level for high risk ASCVD patient
<130 Optimal for general population
130-159 Near optimal for general population
160-189 Borderline High
190-219 High
>=220 Very High LDL, (calculated) 02/15/2024 12:15:35 192 Above high n ormal <=129 (mg/dL) Final LDL Cholesterol Reference Ra nges (mg/dL):
<70 Target level for high risk ASCVD patient
<100 Optimal for general population
100-129 Near optimal for general population
130-159 Borderline high
160-189 High
>=190 Very high Performing Location [facility] [place] - [address] [facility] [id number]
--- OUTSIDE RECORDS SUMMARY | 2024-02-16 22:00 | External Medical Summary | Summary of Care ---
Author Name Unknown Organization [facility] Address [address] [place] [address] Phone [phone] Care Team Providers Care Records Coordinator Name Role Phone Ramiro Lemons DO Primary Care Provider Reason for Referral * Precert (Within 24 hrs (call dept; emergent)) - Pending Review Specialty Diagnoses / Procedures Referred By Archana ruiz Referred To Contact Cardiac Studies Diagnoses Chest pressure Procedures ECHO, STRESS (EXERCISE) W/ PHYSICIAN Ramiro Lemons DO [address] [place] [address] Referral ID Status Reason Start Date Expiration Date Visits Requested Visits Authorized [id number] Pending Review Precert 02/15/[phone] * Ancillary Services (Within 10 days (routine)) - Pending Review Specialty Diagnoses / Procedures Referred By Archana ruiz Referred To Contact Gastroenterology Diagnoses Special screening for malignant neoplasms, colon Ramiro Lemons DO [address] [place] [address] Referral ID Status Reason Start Date Expiration Date Visits Requested Visits Authorized [id number] Pending Review Ancillary Services Required 02/15/[phone] Question Answer Referral Priority Within 10 days (routine) Where should this appointment be scheduled? [facility] Comments ALERT: Do not order for pediatric patients (18 years or younger). Cancel off screen and order PEDS GASTROENTEROLOGY CONSULT (Type: 1 visit only-Evaluate and Treat) The following Pt. Instructions are available: - Gastro Colonoscopy Prep Instructions [[id number]] - Gastro Colonoscopy Prep Instructions (Citizen Of [place] Version) [[id number]] Go to the Pt. Instructions section within the Visit Navigator to access. Colonoscopy ASGE Guidelines: Average risk screening (begin at age 50, 10 year intervals) ADDITIONAL INFORMATION 1. Is the patient on Coumadin? No 2. Is the patient on Pradaxa? No Reason for Visit * Reason Comments Return Visit Pt here for 6 mo ret urn visit. Encounter Details Date Type Department Care Team (Late st Contact Info) Description 02/15/2024 10:40 AM EDT Office Visit Family [facility] [address] [place] [address] Ramiro Lemons, [address] [place] [address] Chest pressure*; Prediabetes; Dyslipidemia, goal LDL below 130; Special screening for malignant neoplasms, colon Allergies Active Allergy Reactions Criticality Noted Date Comments Cat Dander 11/15/2018 documented as of this encounter (statuses as of 02/15/2024) Medications No known medicationsdocumented as of this encounter (statuses as of 02/15/2024) Active Problems Problem Noted Date Diagnosed Date Prediabetes 01/27/2023 Dyslipidemia, goal LDL below 130 01/27/2023 documented as of this encounter (statuses as of 02/15/2024) Resolved Problems Problem Noted Date Diagnosed Date Resolved Date Neoplasm of uncertain behavior of skin 01/08/2015 11/15/2018 Multiple pigmented nevi 01/08/201511/01 documented as of this encounter (statuses as of 02/15/2024) Immunizations Name Administration Dates Next Due COVID-19, LNP-s, No Preserve , Uriel-sucrose, Ages 12+ (Pfizer) 08/27/2021 Covid-19 Ad26, Single Dose (Vinod/J&J) 01/13/2021 Covid-19, Mrna, Lnp-s, Pf, B ivalent, 30 Mcg, IM, 12 yrs and above (Pfizer) 09/02/2022 Hep A - Hepatitis A (ped/ado le, 1-18 Yrs) 11/28/2013 PPD 01/31/2015 Seasonal Influenza, PF, 6 M & above, IM , (FluLaval or Fluzone) 09/02/2022,10/20/2021,08/06/2020,2019,11/15/2018 Seasonal Influenza, Split, I IV3, With Preserve, Inj 09/04/2011 TDAP (age 10 and older)(Boostrix) 01/26/2022 TDAP (age 11 and older)(Adacel) 09/04/2011 Zoster Vaccine Recombinant (Shingrix) 04/06/2022 ,02/02/2022 documented as of this encounter Social History Tobacco Use Types Packs/Day Years Used Date Smoking Tobacco: Never Smokeless Tobacco: Never Tobacco Cessation:Counseling Given: Not Answered Alcohol Use Standard Drinks/Week Comments Yes 0 (1 standard drink = 0.6 oz pur e alcohol) light PHQ-2 Answer Date Recorded PHQ Adult Total Score 0 01/27/2023 Sex and Gender Information Value Date Recorded Sex Assigned at Not on file Gender Identity Not on file Sexual Orientation Not on file Job Start Date Occupation Industry Not on file Not on file Not on file documented as of this encounter Last Filed Vital Signs Vital Sign Reading Time Taken Comments Blood Pressure 120/70 02/15/2024 10:46 AM EDT Pulse 70 02/15/2024 10:46 AM EDT Temperature 35.8 C (96.4 F) 02/15/2024 10:46 AM E DT Respiratory Rate 16 02/15/2024 10:46 AM EDT Oxygen Saturation 97% 02/15/2024 10:46 AM EDT Inhaled Oxygen Concentration - - Weight 95.1 kg (209 lb 9 oz) 02/15/2024 10:46 AM EDT Height 189.2 cm (6' 2.5") 02/15/2024 10:46 AM ED T Body Mass Index 26.55 02/15/2024 10:46 AM EDT documented in this encounter Progress Notes * Ramiro Lemons DO - 02/15/2024 10:49 AM EDT Images from the original note were not included. Assessment and Plan Chest pressure Normal EKG But history concerning along with dyslipidemia and elevated blood sugar - along with fam hx of VT Will have stress echo performed as soon as is possible And will add statin/asa/b-jake if needed - EKG; Future - ECHO, STRESS (EXERCISE) W/ PHYSICIAN; Future Prediabetes - COMPREHENSIVE METABOLIC PANEL; Future - HEMOGLOBIN A1C; Future - ALBUMIN / CREATININE RATIO, URINE; Future Dyslipidemia, goal LDL below 130 - COMPREHENSIVE METABOLIC PANEL; Future - LIPID PANEL WITH DIRECT LDL IF TG IS HIGH; Future Special screening for malignant neoplasms, colon - COLONOSCOPY, GI REFERRAL OP History of Present Illness Cheng Barron is a 58 year old male that presents for Return Visit (Pt here for 6 mo return visit.) Presents Today in follow-up. Patient has noticed over the past month that when he exerts himself strenuously or exercises in and aerobically stressful manner that he begins to have a vague pressure sensation in his chest associated with mild nausea. This sensation disappears if he rests after about30 seconds. Has not been associated with any jaw or left shoulder or arm pain. No history of myocardial infarction in the past. Patient does have a history of mildly elevated blood sugar for which [facility] followed him, last lab work done 2 years ago at his last visit. Physical Exam Vitals: 02/15/24 1046 Temp: 35.8 C (96.4 F) Pulse: 70 Resp: 16 SpO2: 97% BP: 120/70 BMI: 26.55 Physical Exam Constitutional: Appearance: Normal appearance. HENT: Head: Normocephalic and atraumatic. Eyes: Extraocular Movements: Extraocular movements intact. Pupils: Pupils are equal, round, and reactive to light. Cardiovascular: Rate and Rhythm: Normal rate and regular rhythm. Pulmonary: Effort: Pulmonary effort is normal. Breath sounds: Normal breath sounds. Musculoskeletal: General: Normal range of motion. Skin: General: Skin is warm and dry. Neurological: General: No focal deficit present. Mental Status: He is alert and oriented to person, place, and time. Psychiatric: Mood and Affect: Mood normal. Behavior: Behavior normal. Wrap-Up Time: Total time today was 45 minutes excluding any time spent in the performance of separately billed services. documented in this encounter Plan of Treatment Upcoming Encounters Date Type Department Care Team (Late st Contact Info) Description 02/15/2024 1:10 PM EDT Laboratory Laboratory, [facility] [place] [phone] [facility] [place] [address] [email or web address] Other*[id number]; Prediabetes; Dyslipidemia, goal LDL below 130 02/16/2024 8:15 AM EDT Imaging Cardiac Studies, [facility] [place] [address] Pending Results Name Type Priority Associated Diagnoses Date /Time COMPREHENSIVE METABOLIC PANEL Lab Routine Prediabetes Dyslipidemia, goal LDL below 130 02/15/2024 12:15 PM EDT HEMOGLOBIN A1C Lab Routine Prediabetes 02/15/2024 12:15 PM EDT ALBUMIN / CREATININE RATIO, URINE Lab Routine Prediabetes 02/15/2024 12:26 PM EDT LIPID PANEL WITH DIRECT LDL IF TG IS HIGH Lab Routine Dyslipidemia, goal LDL below 130 02/15/2024 12:15 PM EDT Scheduled Orders Name Type Priority Associated Diagnoses Orde r Schedule COMPREHENSIVE METABOLIC PANEL Lab Routine Prediabetes Dyslipidemia, goal LDL below 130 Expected: 02/15/2024 (Approximate), Expires: 02/14/2025 HEMOGLOBIN A1C Lab Routine Prediabetes Expected: 02/15/2024 (Approximate), Expires: 02/14/2025 ALBUMIN / CREATININE RATIO, URINE Lab Routine Prediabetes Expected: 02/15/2024 (Approximate), Expires: 02/14/2025 LIPID PANEL WITH DIRECT LDL IF TG IS HIGH Lab Routine Dyslipidemia, goal LDL below 130 Expected: 02/15/2024, Expires: 02/14/2025 EKG EKG Routine Chest pressure Expected: 02/15/2024 (Approximate), Expires: 03/16/2025 ECHO, STRESS (EXERCISE) W/ PHYSICIAN Echocardiology STAT Chest pressure Expected: 02/15/2024, Expires: 03/16/2025 Scheduled Procedures Name Priority Associated Diagnoses Date/Ti me COLONOSCOPY FLEXIBLE PROXIMA L DIAGNOSTIC Recall Special screening for malignant neoplasms, colon Scheduled Referrals Name Type Priority Associated Diagnoses Orde r Schedule COLONOSCOPY, GI REFERRAL OP Referral Within 10 days (routine) Special screening for malignant neoplasms, colon Ordered: 02/15/2024 Health Maintenance Due Date Last Done Comments Hepatitis B (1 of 3 - 19+ 3-dose series) 1986 Cologuard 2012 Colonoscopy 2012 Colorectal Cancer Screening 2012 Fecal Occult Blood Test 2012 Sigmoidoscopy 2012 HbA1c 01/26/2023 01/26/2022 COVID-19 Vaccine ( season) 2023 09/02/2022, 08/27/2021, 01/13/2021 Depression Screening 01/28/2024 01/27/2023 Influenza Vaccine (FLU shot) (Season Ended) 2024 09/02/2022, 10/20/2021, 08/06/2020, Additional history exists Lipid Panel 01/26/2027 01/26/2022, 01/19/2001 DTaP,Tdap,and Td Vaccines (3 - Td or Tdap) 01/27/2032 01/26/2022, 09/04/2011 Zoster Vaccines Completed 04/06/2022, 02/02/2022 GARDASIL-HPV IMMUNIZATION SERIES Aged Out No longer eligible based on patient's age to complete this topic MENINGOCOCCAL (MENACTRA/MENVEO) Aged Out No longer eligible based on patient's age to complete this topic Pneumococcal Vaccine: Pediatrics (0 to 5 Years) and At-Risk Patients (6 to 64 Years) Aged Out No longer eligible based on patient's age to complete this topic documented as of this encounter Medical Devices Not on filedocumented as of this encounter Visit Diagnoses Diagnosis Chest pressure- Primary Other chest pain Prediabetes Other abnormal glucose Dyslipidemia, goal LDL below 130 Other and unspecified hyperlipidemia Special screening for malignant neoplasms, colon [employer] Other*[id number] Prediabetes Other abnormal glucose Dyslipidemia, goal LDL below 130 Other and unspecified hyperlipidemia documented in this encounter Care Teams Records Coordinator Relationship Specialty Start Date End Date Ramiro Lemons DO [address] [place] [address] PCP - General Family Medicine 11/15/18 documented as of this encounter
--- OUTSIDE RECORDS SUMMARY | 2024-02-16 22:00 | External Medical Summary | Summary of Care ---
Author Name Unknown Organization [facility] Address [address] [place] [address] Phone [phone] Care Team Providers Care Analytics Senior Manager Name Role Phone Ramiro Lemons DO Primary Care Provider Reason for Visit * Reason Onset Date Comments Scheduling 02/15/2024 Encounter Details Date Type Department Care Team (Late st Contact Info) Description 02/15/2024 Telephone Family Practice [facility] [address] [place] [id number] Ramiro Lemons DO [address] [place] [address] Scheduling Allergies Active Allergy Reactions Criticality Noted Date Comments Cat Dander 11/15/2018 documented as of this encounter (statuses as of 02/16/2024) Medications No known medicationsdocumented as of this encounter (statuses as of 02/16/2024) Active Problems Problem Noted Date Diagnosed Date Prediabetes 01/27/2023 Dyslipidemia, goal LDL below 130 01/27/2023 documented as of this encounter (statuses as of 02/16/2024) Resolved Problems Problem Noted Date Diagnosed Date Resolved Date Neoplasm of uncertain behavior of skin 01/08/2015 11/15/2018 Multiple pigmented nevi 01/08/201511/01 documented as of this encounter (statuses as of 02/16/2024) Immunizations Name Administration Dates Next Due COVID-19, [...] Date Smoking Tobacco: Never Smokeless Tobacco: Never Alcohol Use Standard Drinks/Week Comments Yes 0 [...] on file documented as of this encounter Miscellaneous Notes * Telephone Encounter - Andrez Silvestre OSA - 02/15/2024 12:18 PM EDT Please call pt to schedule colonoscopy documented in this encounter Plan of Treatment Scheduled Procedures Name Priority Associated Diagnoses Date/Ti me COLONOSCOPY FLEXIBLE PROXIMA L DIAGNOSTIC Recall Special screening for malignant neoplasms, colon Health Maintenance Due Date Last Done Comments Hepatitis B (1 of 3 - 19+ 3-dose series) 1986 Cologuard 2012 Colonoscopy 2012 Colorectal Cancer Screening 2012 Fecal Occult Blood Test 2012 Sigmoidoscopy 2012 COVID-19 Vaccine ( season) 2023 09/02/2022, 08/27/2021, 01/13/2021 Depression Screening 01/28/2024 01/27/2023 Influenza Vaccine (FLU shot) (Season Ended) 2024 09/02/2022, 10/20/2021, 08/06/2020, Additional history exists HbA1c 02/14/2025 02/15/2024, 01/26/2022 Lipid Panel 02/14/2029 02/15/2024, 12/31, 01/19/2001 DTaP,Tdap,and Td Vaccines (3 - Td [...] Not on filedocumented as of this encounter Care Teams Analytics Senior Manager Relationship Specialty Start Date End Date Ramiro Lemons DO [address] [place] [address] PCP - General Family Medicine 11/15/18 documented as of this encounter
--- OUTSIDE RECORDS SUMMARY | 2024-02-16 22:00 | External Medical Summary | Summary of Care ---
Author Name Unknown Organization [facility] Address [address] [place] [address] Phone [phone] Care Team Providers Care Hedis Registered Nurse Rn Name Role Phone Ramiro Lemons Primary Care Provider Reason for Visit * Reason Comments Outpatient Testing Encounter Details Date Type Department Care Team (Late st Contact Info) Description 02/15/2024 1:10 PM EDT Laboratory Laboratory, [facility] [address] [place] [phone] [facility] [address] [place] [address] [employer] Other*[id number]; Prediabetes; Dyslipidemia, goal LDL below 130 Allergies Active Allergy Reactions Criticality Noted Date [...] on file documented as of this encounter Plan of Treatment Upcoming Encounters Date Type Department Care Team (Late st Contact Info) Description 02/16/2024 8:15 AM EDT Imaging Cardiac Studies, [facility] [address] [place] [address] Pending Results Name Type Priority Associated Diagnoses Date /Time MYCODE SUBSEQUENT ADULT Lab Routine [employer] Other*[id number] 02/15/2024 12:15 PM EDT COMPREHENSIVE METABOLIC PANEL Lab Routine Prediabetes Dyslipidemia, goal LDL below 130 02/15/2024 12:15 PM EDT HEMOGLOBIN A1C Lab Routine Prediabetes 02/15/2024 12:15 PM EDT LIPID PANEL WITH DIRECT LDL IF TG IS HIGH Lab Routine Dyslipidemia, goal LDL below 130 02/15/2024 12:15 PM EDT MYCODE SST1 Lab Routine [employer] Other*[id number] 02/15/2024 12:15 PM EDT MYCODE SST2 Lab Routine [employer] Other*[id number] 02/15/2024 12:15 PM EDT ALBUMIN / CREATININE RATIO, URINE Lab Routine Prediabetes 02/15/2024 12:26 PM EDT Scheduled Procedures Name Priority Associated Diagnoses Date/Ti [...] as of this encounter Visit Diagnoses Diagnosis [employer] Other*[id number] Prediabetes Other abnormal glucose Dyslipidemia, goal LDL below 130 Other and unspecified hyperlipidemia documented in this encounter Care Teams Hedis Registered Nurse Rn Relationship Specialty Start Date End Date Ramiro Lemons DO [address] [address] PCP - General Family Medicine 11/15/18 documented as of this encounter
--- OUTSIDE RECORDS SUMMARY | 2024-02-16 22:00 | External Medical Summary ---
Author Name Unknown Address Unknown Organization [id number]:LAB[facility]ATORY [facility] - [address] [place] [address] Laboratory Report Ordering Provider Test Date Status LATISHA FINN 02/15/2024 12:26:04 Final Normal: <30 mg/g creatinine< br/>High: 30-300 mg/g creatinine
Very High: >300 mg/g creatinine
Nephrotic: >2200 mg/g creatinine Observation Date Value Abnormality Reference (Units ) Status Albumin, Urine 02/15/2024 12:26:04 <1.20 (mg/dL) Final Creatinine, Urine 02/15/2024 12:26:04 126 (mg/dL) Final Albumin/Creatinine [Mass Ratio] in Urine 02/15/2024 12:26:04 <10 <30 (mg/g Creat) Final Performing Location [facility] - [address] [place] [address]
--- OUTSIDE RECORDS SUMMARY | 2024-02-16 22:01 | External Medical Summary ---
Author Name Unknown Address Unknown Organization [id number]:LABORATORY [facility] - [address] [place] [address] Laboratory Report Ordering Provider Test Date Status ISMAEL KEY 02/15/2024 12:15:35 Final Observation Date Value Abnormality Reference (Units ) Status MYCODE SPECIMEN-SST 02/15/2024 12:15:35 Freezing of extracted DNA, whole blood and/or serum. Final Performing Location LABORATORY [facility] - [address] [place] [address]
--- OUTSIDE RECORDS SUMMARY | 2024-02-16 22:01 | External Medical Summary ---
Author Name Unknown Address Unknown Organization K01:LABORATORY [facility] - [address] [facility] [address] Laboratory Report Ordering Provider Test Date Status LATISHA FINN 02/15/2024 12:15:35 Final Observation Date Value Abnormality Reference (Units ) Status HbA1C 02/15/2024 12:15:35 5.4 4.0-5.6 (% ) Final The use of HbA1c to monitor glycemic status is based on normal hemoglobin and HbA composition. This test should not be used in patients with abnormal hemoglobin that affects the half life of the red blood cell or the in vivo glycation rates. Glucose, estimated average 02/15/2024 12:15:35 108 <126 (mg/dL) Final Performing Location [facility]ATORY [facility] - [address] [facility] [address]
--- OUTSIDE RECORDS SUMMARY | 2024-02-16 22:01 | External Medical Summary ---
Author Name Unknown Address Unknown Organization K0G:[facility]ORY [facility] - [address] [place] [address] Laboratory Report Ordering Provider Test Date Status LATISHA FINN 02/15/2024 12:15:35 Final Observation Date Value Abnormality Reference (Units ) Status BUN 02/15/2024 12:15:35 21 Above high normal 6-20 (mg/dL) Final Creatinine 02/15/2024 12:15:35 1.0 0.6-1.2 (mg/dL) Final Glomerular filtration rate/1.73 sq M.predicted [Volume Rate/Area] in Serum, Plasma or Blood by Creatinine-based formula (CKD-EPI) 02/15/2024 12:15:35 84 >=60 (mL/min) Final eGFR is calculated based on the CKD-EPI 2020 equation Sodium 02/15/2024 12:15:35 139 135-146 (m mol/L) Final Potassium 02/15/2024 12:15:35 4.2 3.5-5.1 (m mol/L) Final Cl 02/15/2024 12:15:35 102 98-107 (mm ol/L) Final CO2 02/15/2024 12:15:35 24 22-32 (mmo l/L) Final Anion gap 02/15/2024 12:15:35 13 7-15 (mmol /L) Final Glucose 02/15/2024 12:15:35 99 70-120 (mg /dL) Final Albumin 02/15/2024 12:15:35 4.8 3.8-5.0 (g /dL) Final AST (Aspartate aminotransferase) 02/15/2024 12:15:35 24 10-50 (U/L) Final Alk Phos 02/15/2024 12:15:35 101 35-130 (U/ L) Final Bilirubin, Total 02/15/2024 12:15:35 0.5 <=1 .2 (mg/dL) Final Calcium 02/15/2024 12:15:35 10.0 8.4-10.2 ( mg/dL) Final Protein 02/15/2024 12:15:35 7.8 6.0-8.3 (g /dL) Final ALT (Alanine aminotransferase) 02/15/2024 12:15:35 19 10-50 (U/L) Final Performing Location LABORATORY [facility] - [address] [facility] [address]
--- OUTSIDE RECORDS SUMMARY | 2024-02-16 22:01 | External Medical Summary ---
Author Name Unknown Address Unknown Organization K01:LABORATORY [facility] - [address] [place] [address] Laboratory Report Ordering Provider Test Date Status ISMAEL KEY 02/15/2024 12:15:35 Final Observation Date Value Abnormality Reference (Units ) Status MYCODE SPECIMEN-SST 02/15/2024 12:15:35 Freezing of extracted DNA, whole blood and/or serum. Final Performing Location LABORATORY [facility] - [address] [place] [address]
--- OUTSIDE RECORDS SUMMARY | 2024-02-16 22:01 | External Medical Summary | Summary of Care ---
Author Name Unknown Organization [facility] Address [address] [place] [address] Phone [phone] Care Team Providers Care Optical Systems Engineer Name Role Phone Ramiro Lemons DO Primary Care Provider Reason for Visit * Reason Onset Date Comments Health Maintenance 10/21/2023 Encounter Details Date Type Department Care Team (Late st Contact Info) Description 10/21/2023 Telephone Family Practice [facility] [address] [place] [address] Ramiro Lemons DO [address] [place] [address] Health Maintenance Allergies Active Allergy Reactions Criticality Noted Date Comments Cat Dander 11/15/2018 documented as of this encounter (statuses as of 10/21/2023) Medications No known medicationsdocumented as of this encounter (statuses as of 10/21/2023) Active Problems Problem Noted Date Diagnosed Date Prediabetes 01/27/2023 Dyslipidemia, goal LDL below 130 01/27/2023 documented as of this encounter (statuses as of 10/21/2023) Resolved Problems Problem Noted Date Diagnosed Date Resolved Date Neoplasm of uncertain behavior of skin 01/08/2015 11/15/2018 Multiple pigmented nevi 01/08/201511/01 documented as of this encounter (statuses as of 10/21/2023) Immunizations Name Administration Dates Next Due COVID-19, [...] encounter Miscellaneous Notes * Telephone Encounter - Anastasia Quiroz LPN - 10/21/2023 1:28 PM EST Care Gaps Comprehensive Care Outreach Last Office/Telemedicine Visit: 01/27/2023 (in office), Visit date not found (telemedicine) Next Office Visit: 01/10/2024 Hemoglobin AIC Results: Lab Results Component Value Date/Time HEMOGLOBIN A1C - [facility] 5.8 (H) 01/26/2022 03:00 PM Reviewed Health Maintenance below: Health Maintenance Topic Date Due Hepatitis B (1 of 3 - 3-dose series) Never done Colorectal Cancer Screening Never done HbA1c 01/26/2023 Influenza Vaccine (FLU shot) (1) 07/02/2023 COVID-19 Vaccine ( season) 2023 Depression Screening 01/28/2024 Labs already ordered Colon reached out in the summer because cologuard was not returned Care Gap Outreach Action Taken: Outreach not indicated documented in this encounter Plan of Treatment Upcoming Encounters Date Type Department Care Team (Late st Contact Info) Description 01/10/2024 3:20 PM EDT Office Visit Family Practice [facility] [address] [place] [address] Ramiro Lemons DO [address] [place] [address] Scheduled Procedures Name Priority Associated Diagnoses Date/Ti me COLONOSCOPY FLEXIBLE PROXIMA L DIAGNOSTIC Recall Special screening for malignant neoplasms, colon Health Maintenance Due Date Last Done Comments Hepatitis B (1 of 3 - 3-dose series) 1967 Cologuard 2012 Colonoscopy 2012 Colorectal Cancer Screening 2012 Fecal Occult Blood Test 2012 Sigmoidoscopy 2012 HbA1c 01/26/2023 01/26/2022 COVID-19 Vaccine ( season) 2023 09/02/2022, 08/27/2021, 01/13/2021 Influenza Vaccine (FLU shot) (#1) 2023 09/02/2022, 10/20/2021, 08/06/2020, Additional history exists Depression Screening 01/28/2024 01/27/2023 Lipid Panel 01/26/2027 01/26/2022, 01/19/2001 DTaP,Tdap,and Td [...] filedocumented as of this encounter Care Teams Optical Systems Engineer Relationship Specialty Start Date End Date Ramiro Lemons DO [address] [place] [address] PCP - General Family Medicine 11/15/18 documented as of this encounter
[2024-02-17] MEDS ORDERED: MULTIVITAMIN TAB PO SCH (09:00)
[2024-02-17] MEDS ORDERED: ROSUVASTATIN CALCIUM 20 MG TAB PO SCH (09:00)
[2024-02-17] MEDS ORDERED: CHOLECALCIFEROL 25 MCG (1000 UNITS) TAB PO SCH (09:00)
[2024-02-17] MEDS ORDERED: ASPIRIN 81 MG ECTAB PO SCH (09:00)
== END 2024-02-16 20:09 | disposition home or self-care (01) | DRG 287 ==
LOC: ED 11:39 → EDINP 14:13 → INTOOBSV 14:13 → EDINP 15:11 → 2S 17:23